=== PATIENT | male | born 1960 | race Caucasian/White ===

== ENCOUNTER 2016-10-01 03:03 | Emergency (ER) | payer OTHER ==
[~2016-10-01] VITALS: Ht 182.9 cm; Wt 109.2 kg
[~2016-10-01 03:03] MED LIST: ACULAR 0.5100 DROP/5 LEFT EYE; FLEXERIL10 MG PO; NAPROSYN500 MG PO; NAPROXEN500 MG PO; NOHOMEMEDS; PREDNISONE10 MG PO; PREDNISONE20 MG PO; ULTRAM50 MG PO; VIGAMOX 0.60 DROP/3 LEFT EYE
[2016-10-01 04:18] VITALS: BP 129/87
== END 2016-10-01 04:19 | disposition home or self-care (01) ==
LOC: EME 03:03
PROC: 2W3MXYZ Immobilization of Left Lower Extremity using Other Device (ICD-10-PCS; principal; 2016-10-01)
DX: S82.002A Unspecified fracture of left patella, initial encounter for closed fracture (principal); V89.2XXA Person injured in unspecified motor-vehicle accident, traffic, initial encounter
CPT/HCPCS: 73564; 99281; 99284

== ENCOUNTER 2017-07-07 04:20 | Emergency (ER) | payer SELFPAY ==
[~2017-07-07] VITALS: Ht 188 cm; Wt 107.4 kg
[2017-07-07 06:35] VITALS: BP 128/84
== END 2017-07-07 06:35 | disposition home or self-care (01) ==
LOC: EME 04:20
PROC: 09C3XZZ Extirpation of Matter from Right External Auditory Canal, External Approach (ICD-10-PCS; principal; 2017-07-07)
DX: H61.21 Impacted cerumen, right ear (principal); F17.200 Nicotine dependence, unspecified, uncomplicated; Z71.6 Tobacco abuse counseling
CPT/HCPCS: 99281; 99284